=== PATIENT | female | born 1935 | race Caucasian/White ===

== ENCOUNTER 2018-07-10 18:04 | Emergency (ER) | payer MEDICARE ==
[~2018-07-10] VITALS: Wt 55.3 kg
[~2018-07-10 18:04] MED LIST: AMBIEN10 M1 PO; CYMBALTA60 MG PO; HYZAAR 50-12.51 EACH PO; MOBIC7.5 MG PO; MULTIVITAMINS1 EAC6 PO; NORVASC5 MG PO; OMEPRAZOLE D/R20 MG PO; VITAMIN D-32000 UNI1 PO
== END 2018-07-10 19:55 | disposition short-term general hospital (02) ==
LOC: ED 18:04
DX: S98.141A Partial traumatic amputation of one right lesser toe, initial encounter (principal); S98.121A Partial traumatic amputation of right great toe, initial encounter; Z91.041 Radiographic dye allergy status; Z88.2 Allergy status to sulfonamides; Z79.899 Other long term (current) drug therapy; Z90.710 Acquired absence of both cervix and uterus; W31.89XA Contact with other specified machinery, initial encounter; Y93.H2 Activity, gardening and landscaping; Y92.89 Other specified places as the place of occurrence of the external cause; Y99.8 Other external cause status